=== PATIENT | female | born 1960 | race Caucasian/White ===

== ENCOUNTER 2018-05-16 07:52 | Day surgery (SDC) | payer OTHER, BC ==
[2018-05-16] MEDS ORDERED: LIDOCAINE HCL 1% MPF 30 SOL ONE (07:56)
[2018-05-16] MEDS ORDERED: ONDANSETRON HCL 4 MG/2 ML SOL ONE (08:37)
[2018-05-16] MEDS ORDERED: PROPOFOL 500 MG/50 ML EMU IV ONE (08:37)
[2018-05-16] MEDS ORDERED: FENTANYL 100MCG/2ML SOL ONE (08:38)
[2018-05-16] MEDS ORDERED: MIDAZOLAM 2 MG/2 ML SOL ONE (08:38)
[2018-05-16] MEDS ORDERED: CLINDAMYCIN 150 MG/ML SOL ONE (09:27)
[2018-05-16 11:20] VITALS: BP 101/57; PULSE 63; RESP 16; TEMP 97.6; O2SAT 95
== END 2018-05-16 11:15 | disposition home or self-care (01) | DRG 74 ==
LOC: SURG 07:52
PROVIDERS: ATTEND Orthopaedic Surgery
DX: G56.01 Carpal tunnel syndrome, right upper limb (principal)
CPT/HCPCS: J2250; J2405; J3010; J3490; A6402; J2001; J2704